=== PATIENT | female | born 1960 ===

== ENCOUNTER 2021-12-06 09:00 | Inpatient (IN) | payer OTHER ==
[~2021-12-06] VITALS: Ht 165.1 cm; Wt 86.2 kg
[2021-12-06] MEDS ORDERED: PLAQUENIL PO (10:35)
[2021-12-06] MEDS ORDERED: ACID CONTROLLER20 MG PO (10:36)
[2021-12-06] MEDS ORDERED: CYMBALTA60 MG PO (10:36)
[2021-12-06] MEDS ORDERED: SYNTHROID75 MCG PO (10:37)
[2021-12-06] MEDS ORDERED: OMEPRAZO PO (10:37)
[2021-12-06] MEDS ORDERED: AMITRIPTYLINE H50 MG PO (10:37)
[2021-12-06] MEDS ORDERED: GABAPEN PO (10:38)
[2021-12-06] MEDS ORDERED: CLARITIN10 M1 PO (10:38)
[2021-12-11] MEDS ORDERED: NEURONTIN800 MG PO (13:50)
[2021-12-11] MEDS ORDERED: PERCOCET 5-3251 EACH PO (13:50)
[2021-12-11] MEDS ORDERED: COLACE100 MG PO (13:50)
[2021-12-11] MEDS ORDERED: MEDROLPACK PO (13:50)
[2021-12-11] MEDS ORDERED: AMOX-CLAV 875-1 EACH PO (13:50)
== END 2021-12-13 22:27 | DRG 455 ==
LOC: SURG 12-11 08:03 → O/R 12-11 08:03 → SURH 12-11 09:00 → SURG 12-11 16:38
PROVIDERS: ADMIT Orthopaedic Surgery Orthopaedic Surgery of the Spine; ATTEND Orthopaedic Surgery Orthopaedic Surgery of the Spine
PROC: 0SG0071 Fusion of Lumbar Vertebral Joint with Autologous Tissue Substitute, Posterior Approach, Posterior Column, Open Approach (ICD-10-PCS; 2021-12-11)
PROC: 0SB20ZZ Excision of Lumbar Vertebral Disc, Open Approach (ICD-10-PCS; 2021-12-11)
PROC: 0QB30ZZ Excision of Left Pelvic Bone, Open Approach (ICD-10-PCS; 2021-12-11)
PROC: 07DR0ZZ Extraction of Iliac Bone Marrow, Open Approach (ICD-10-PCS; 2021-12-11)
PROC: 4A12X4Z Monitoring of Cardiac Electrical Activity, External Approach (ICD-10-PCS; 2021-12-11)
PROC: 0SG00A0 Fusion of Lumbar Vertebral Joint with Interbody Fusion Device, Anterior Approach, Anterior Column, Open Approach (ICD-10-PCS; principal; 2021-12-11 15:00)
DX: M43.16 Spondylolisthesis, lumbar region (principal); M48.062 Spinal stenosis, lumbar region with neurogenic claudication; M51.36 Other intervertebral disc degeneration, lumbar region; E03.8 Other specified hypothyroidism; M79.7 Fibromyalgia; I10 Essential (primary) hypertension